=== PATIENT | male | born 1945 | race Caucasian/White ===

== ENCOUNTER 2017-03-09 10:59 | Day surgery (SDC) | payer MEDICARE ==
[2017-03-09 11:17] VITALS: BMI 21.9
--- NOTE | 2017-03-09 11:50 | PDOC ---
History of Present Illness - General History Source: Patient Exam Limitations: No Limitations - History of Present Illness Initial Comments: 03/09/17 11:52 71 y/o M with a PMHx of pacemaker s/p thyroidectomy (12 years ago) presents to the ED sent in by mat tester for a change in pacemaker. Patient noticed the area of the pacemaker twitching for the past two months. Statistical Technician told patient the battery may be dying and needs a replacement. He originally had pacemaker placed 12 years ago due to his heart stopping during a thyroidectomy. Patient has no symptoms. Patient is scheduled in the OR for a pacemaker battery replacement today. He denies fever, chills, diaphoresis. Denies chest pain, SOB , palpitations. Denies nausea, vomiting, diarrhea. Statistical Technician: Dr. Moi Zaidi Environmental Services Specialist: Dr. Fabián Koenig <Flor Garsia - Last Filed: 03/09/17 12:24> <Dominga Perry - Last Filed: 03/09/17 13:28> - General Chief Complaint: Irregular Heart Beat Stated Complaint: PACEMAKER MALFUNCTION Past History <Flor Garsia - Last Filed: 03/09/17 12:24> - Past Medical History Anemia: No Asthma: Yes Cancer: No Cardiac Disorders: Yes (CAD) CVA: No COPD: Yes (BRONCHITIS) CHF: No Dementia: No Diabetes: No GI Disorders: Yes Disorders: No HTN: Yes Hypercholesterolemia: Yes Liver Disease: No Seizures: No Thyroid Disease: No - Surgical History Abdominal Surgery: No Appendectomy: No Cardiac Surgery: Yes (TRIPLE BYPASS, pace maker) Cholecystectomy: No Lung Surgery: No Neurologic Surgery: No Orthopedic Surgery: No - Immunization History Immunization Up to Date: No - Suicide/Smoking/Psychosocial Hx Smoking History: Never smoked Have you smoked in the past 12 months: No Information on smoking cessation initiated: No Hx Alcohol Use: No Drug/Substance Use Hx: No Substance Use Type: None <Dominga Perry - Last Filed: 03/09/17 13:28> - Past Medical History Allergies/Adverse Reactions: Allergies Allergy/AdvReac Type Severity Reaction Status Date / Time No Known Allergies Allergy Verified 03/09/17 11:11 Home Medications: Ambulatory Orders Carvedilol Phosphate [Coreg Cr] 12.5 mg PO DAILY 04/16/14 Levothyroxine [Synthroid -] 112 mcg PO DAILY 04/16/14 Telmisartan [Micardis] 20 mg PO DAILY 04/16/14 Cholecalciferol (Vitamin D3) [Vitamin D3 -] 400 unit PO DAILY 03/09/17 Review of Systems - Review of Systems Able to Perform ROS?: Yes Comments:: 03/09/17 11:52 GENERAL/CONSTITUTIONAL: No fever or chills. No weakness. HEAD, EYES, EARS, NOSE AND THROAT: No change in vision. No ear pain or discharge. No sore throat. CARDIOVASCULAR: (+) twitching at site of pacemaker. No chest pain or shortness of breath. RESPIRATORY: No cough, wheezing, or hemoptysis. GASTROINTESTINAL: No nausea, vomiting, diarrhea or constipation. GENITOURINARY: No dysuria, frequency, or change in urination. MUSCULOSKELETAL: No joint or muscle swelling or pain. No neck or back pain. SKIN: No rash NEUROLOGIC: No headache, vertigo, loss of consciousness, or change in strength/ sensation. ENDOCRINE: No increased thirst. No abnormal weight change. HEMATOLOGIC/LYMPHATIC: No anemia, easy bleeding, or history of blood clots. ALLERGIC/IMMUNOLOGIC: No hives or skin allergy. <Flor Garsia - Last Filed: 03/09/17 12:24> *Physical Exam - Vital Signs Last Vital Signs Temp Pulse Resp BP Pulse Ox 98.0 F 76 18 114/58 98 03/09/17 11:13 03/09/17 11:13 03/09/17 11:13 03/09/17 11:13 03/09/17 11:13 - Physical Exam Comments: 03/09/17 11:52 GENERAL: Awake, alert, and fully oriented, in no acute distress HEAD: No signs of trauma EYES: PERRLA, EOMI, sclera anicteric, conjunctiva clear ENT: Auricles normal inspection, hearing grossly normal, nares patent, oropharynx clear without exudates. Moist mucosa NECK: Normal ROM, supple, no lymphadenopathy, JVD, or masses LUNGS: Breath sounds equal, clear to auscultation bilaterally. No wheezes, and no crackles HEART: Regular rate and rhythm, normal S1 and S2, no murmurs, rubs or gallops ABDOMEN: Soft, nontender, normoactive bowel sounds. No guarding, no rebound. No masses EXTREMITIES: Normal range of motion, no edema. No clubbing or cyanosis. No cords, erythema, or tenderness NEUROLOGICAL: Cranial nerves II through XII grossly intact. Normal speech, normal gait SKIN: Warm, Dry, normal turgor, no rashes or lesions noted. <Flor Garsia - Last Filed: 03/09/17 12:24> - Vital Signs Last Vital Signs Temp Pulse Resp BP Pulse Ox 98.0 F 76 18 114/58 98 03/09/17 11:13 03/09/17 11:13 03/09/17 11:13 03/09/17 11:13 03/09/17 11:13 <Dominga Perry - Last Filed: 03/09/17 13:28> ED Treatment Course - LABORATORY CBC & Chemistry Diagram: 03/09/17 13:00 03/09/17 13:00 <Dominga Perry - Last Filed: 03/09/17 13:28> Medical Decision Making - Medical Decision Making 03/09/17 12:[address] Zaidi. [phone] 03/09/17 12:[address] Koenig. [phone] 03/09/17 12:24 Paged OR and confirmed patient is scheduled for surgery at 4 pm. <Flor Garsia - Last Filed: 03/09/17 12:24> - Medical Decision Making 03/09/17 13:26 Pt presents to the ED after sent in by primary mat tester for admission for change of pacemaker battery. patient is asymptomatic. Case discussed with Dr. Koenig, who will be taking the patient to the OR at 4 pm. <Dominga Perry - Last Filed: 03/09/17 13:28> *DC/Admit/Observation/Transfer - Attestations Scribe Attestion: 03/09/17 11:52 Documentation prepared by Flor Garsia, acting as medical geneticist for Dominga Perry MD. <Flor Garsia - Last Filed: 03/09/17 12:24> - Discharge Dispostion Admit: Yes <Dominga Perry - Last Filed: 03/09/17 13:28> Diagnosis at time of Disposition: Encounter for servicing of pacemaker at end of battery life - Discharge Dispostion Condition at time of disposition: Good
[2017-03-09 13:17] LABS: BASOPHIL 0.9 % (0-2.0); EOSINOPHIL 1.9 % (0-4.5); MCHC 33.2 g/dl (32.0-35.9); MEAN CELL VOLUME 96.3 fl (80-96); MEAN PLT VOLUME 8.8 fl (7.5-11.1); NEUTROPHILS 68.4 % (42.8-82.8); PLATELET COUNT 133 K/MM3 (134-434); RDW 13.2 % (11.9-15.9); WHITE BLOOD COUNT 5.3 K/mm3 (4.0-10.0)
[2017-03-09 13:22] LABS: INR 0.99 (0.82-1.09); PROTHROMBIN TIME (PATIENT) 11.2 SEC (9.98-11.88)
[2017-03-09 13:44] LABS: ALBUMIN 3.6 g/dl (3.4-5.0); ANION GAP 9 (8-16); CALCIUM 9.4 mg/dL (8.5-10.1); CO2 28 mmol/L (21-32); CREATININE 0.8 mg/dL (0.7-1.3); GLUCOSE,RANDOM 151 mg/dL (74-106); SGPT/ALT 18 U/L (12-78)
[2017-03-09 13:46] LABS: BILIRUBIN,TOTAL 0.8 mg/dL (0.2-1.0); TOT PROT 6.6 g/dl (6.4-8.2)
[2017-03-09 13:48] LABS: ALK PHOS 91 U/L (45-117); TROPONIN I 0.08 ng/ml (0.00-0.05)
[2017-03-09 13:50] LABS: CPK 97 IU/L (39-308); SGOT/AST 20 U/L (15-37)
--- NOTE | 2017-03-09 15:43 | CON.CARD ---
Consult Consult Specialty:: Cardiac EP Referred by:: Dr. Zaidi Reason for Consultation:: Pacemaker battery depletion - History of Present Illness Chief Complaint: Pacemaker at end of life History of Present Illness: Mr. Nunn is a pleasant 71 year old male with a pmh of complete heart block post thyroid surgery several years ago s/p dual chamber [employer] pacemaker, htn, cad s/p 3vcabg, hypothyroidism, dm who presented to the [facility] due to his device being at end of life. The patient denies any chest pain, dyspnea, palpitations, near or true syncope. - History Source History Provided By: Patient Limitations to Obtaining History: No Limitations - Past Medical History Cardio/Vascular: Yes: CAD Pulmonary: Yes: Asthma Endocrine: Yes: Diabetes Mellitus - Past Surgical History Past Surgical History: Yes: CABG Additional Surgical History: thyroid surgery 12 years ago - Alcohol/Substance Use Hx Alcohol Use: No - Smoking History Smoking history: Never smoked Have you smoked in the past 12 months: No Home Medications - Allergies Allergies/Adverse Reactions: Allergies Allergy/AdvReac Type Severity Reaction Status Date / Time No Known Allergies Allergy Verified 03/09/17 11:11 - Home Medications Home Medications: Ambulatory Orders Carvedilol Phosphate [Coreg Cr] 12.5 mg PO DAILY 04/16/14 Levothyroxine [Synthroid -] 112 mcg PO DAILY 04/16/14 Telmisartan [Micardis] 20 mg PO DAILY 04/16/14 Cholecalciferol (Vitamin D3) [Vitamin D3 -] 400 unit PO DAILY 03/09/17 Family Disease History - Family Disease History Family History: Unremarkable Review of Systems - Review of Systems Constitutional: reports: No Symptoms HENT: denies: Difficult Swallowing, Epistaxis Neck: denies: Decreased ROM, Pain on Movement Cardiovascular: denies: Chest Pain, Edema, Palpitations, Shortness of Breath Respiratory: denies: Cough, Hemoptysis, Orthopnea, SOB on Exertion Gastrointestinal: denies: Abdominal Pain, Nausea, Vomiting Genitourinary: denies: Dysuria Integumentary: denies: Rash Neurological: denies: No Symptoms Psychiatric: denies: No Symptoms - Risk Factors Known Risk Factors: Yes: Diabetes Mellitus, Hypertension Vital Signs: Vital Signs Temperature 98.0 F 03/09/17 11:13 Pulse Rate 76 03/09/17 11:13 Respiratory Rate 18 03/09/17 11:13 Blood Pressure 114/58 03/09/17 11:13 O2 Sat by Pulse Oximetry (%) 98 03/09/17 11:13 Constitutional: Yes: Well Nourished Eyes: No: Sclera Icterus HENT: No: Epistaxis Respiratory: Yes: WNL, Regular, CTA Bilaterally Gastrointestinal: Yes: Normal Bowel Sounds, Soft Cardiovascular: Yes: Regular Rate and Rhythm JVD: No PMI: Non-Displaced Heart Sounds: Yes: S1, S2 Extremities: Yes: WNL Edema: No Peripheral Pulses WNL: Yes Neurological: Yes: Alert, Oriented ...Motor Strength: WNL Psychiatric: Yes: WNL - Other Data Labs, Other Data: CBC, BMP 03/09/17 13:00 03/09/17 13:00 INR, PTT INR 0.99 (0.82-1.09) 03/09/17 13:00 Troponin, BNP 03/09/17 13:00 Troponin I 0.08 H Troponin, BNP 03/09/17 13:00 Troponin I 0.08 H NSR with 1-1 AV conduction Ejection Fraction %: LVEF > or = 40 % Imaging - Results Chest X-ray: Image Reviewed EKG: Image Reviewed Problem List - Problems (1) Pacemaker at end of battery life Code(s): Z45.010 - ENCNTR FOR CHECKING AND TEST OF CARD PACEMAKER PULSE GNRTR Assessment/Plan 03/09/17: JVD EPS: ppm needing battery replacement due to being at end of life. trop 0.08 without chest pain, not significant. repeat pending. normal LVEF on recent echo. extensive conversation with the patient regarding pulse generator replacement. all questions answered. pt agreeable to proceed. consent obtained and placed in chart. risks/benefits/alternatives were discussed at length. d/w Dr. Zaidi. - for ppm battery replacement today - keep npo - no heparin/lovenox - ancef 1 grams ivss x 1 on-call to OR Fabián Koenig MD [phone]
[2017-03-09] MEDS ORDERED: MIDAZOLAM HCL 2 MG/2 ML SINGLE DOSE VIAL ONE ×2 (16:10→16:47)
[2017-03-09 16:26] LABS: TROPONIN I 0.07 ng/ml (0.00-0.05)
[2017-03-09] MEDS ORDERED: ceFAZolin SODIUM 1 GM VIAL IVPB ONE (16:29)
[2017-03-09] MEDS ORDERED: BUPIVACAINE HCL/PF 0.5% (5MG/ML) 10 ML VIAL ONE (16:36)
[2017-03-09] MEDS ORDERED: LIDOCAINE HCL 1%, 10 MG/ML (20ML VIAL) ONE (16:36)
[2017-03-09] MEDS ORDERED: ceFAZolin SODIUM 1 GM VIAL ONE (16:39)
[2017-03-09] MEDS ORDERED: BUPIVACAINE HCL/PF 0.5% (5MG/ML) 10 ML VIAL IJ ONE (16:47)
[2017-03-09] MEDS ORDERED: LIDOCAINE HCL 1%, 10 MG/ML (50 mL VIAL) IJ ONE (16:47)
--- NOTE | 2017-03-09 17:10 | EKG ---
Test Reason : Blood Pressure : / mmHG Vent. Rate : 068 BPM Atrial Rate : 068 BPM P-R Int : 184 ms QRS Dur : 100 ms QT Int : 372 ms P-R-T Axes : 061 028 078 degrees QTc Int : 395 ms NORMAL SINUS RHYTHM NONSPECIFIC T WAVE ABNORMALITY ABNORMAL ECG WHEN COMPARED WITH ECG OF 26-MAR-2010 23:29, ST MORE DEPRESSED ANTERIOR LEADS Confirmed by DIO SANDOVAL MD ([id number]) on 03/09/2017 5:10:35 PM Referred By: Confirmed By:DIO SANDOVAL MD
[2017-03-09] MEDS ORDERED: ONDANSETRON 4 MG/2 ML VIAL IVPUSH PRN (17:17)
[2017-03-09] MEDS ORDERED: LACTATED RINGERS SOLUTION 1,000 ML IV SCH (17:30)
--- NOTE | 2017-03-09 17:40 | OPR ---
s/p [employer] dual chamber pacemaker pulse generator replacement Dx: Pacemaker battery depletion Anesthesiologist Dr: Vibha De La Cruz Minimal blood loss Old pacemaker pulse generator replacement removed
[2017-03-09 18:37] VITALS: TEMP 97.8
[2017-03-09 19:43] VITALS: BP 120/66; PULSE 62
--- NOTE | 2017-03-10 06:25 | OP ---
DATE OF OPERATION: 03/09/2017 PROCEDURE: Dual-chamber pacemaker pulse generator replacement. SURGEON: Aleksandra Koenig MD INDUSTRIAL AUTOMATION SPECIALIST: Carolee De La Cruz CRNA COMPLICATIONS: None. ESTIMATED BLOOD LOSS: Minimal. This is a 71-year-old male with a past medical history of complete heart block, status post [employer] dual-chamber pacemaker, 2004, now at end of life, here for urgent pulse generator replacement. Informed consent was obtained and adequate time for questions and answers was offered to the patient prior to the procedure. PROCEDURE: Preoperative antibiotics were administered. The procedure was performed during continuous ECG monitoring and with both conscious sedation and local anesthesia administered. Oxygen saturation and exhaled CO2 content were monitored continuously. The left infraclavicular region was prepped and broadly draped. Following administration of local anesthesia, an incision was made at the prior incision site in the left chest area. Using a combination of blunt and sharp dissection with close attention to hemostasis, the old device generator was successfully explanted. Hemostasis was secured. The leads were checked and parameters were stable. All sponges were removed and the wound was irrigated with antibiotic solution. The pulse generator was then connected to the proximal portion of the pacemaker lead and after confirming the adequacy of the electrode connection the device was placed in the pocket. The incision was then closed in layers using absorbable sutures. Dermabond was applied. A sterile bandage was applied. Proper device function was confirmed and the patient was transferred to the postprocedure monitoring area for additional observation. Final device settings were as follows: [employer] Accolade DRIS-1, L301 dual-chamber pacemaker, serial number [id number], implanted March 09, 2017. DDD 60 to 120 beats per minute. The atrial lead was a [employer] FINELINE II EZ Sterox bipolar IS-1 positive fix steroid RA/RV 1480, serial number [id number], implanted February 24, 2005. Bipolar polarity. P waves 3.7 mV. Sensitivity 0.75 mV. Atrial impedance 548 ohms. Atrial threshold 0.6 V at 0.5 msec. Amplitude 2.5 V at 0.5 msec. The ventricular lead was a [employer] FLEXTEND IS-1 bipositive fix RA/RV 59-cm 4088, serial number [id number], implanted February 24, 2005. Bipolar polarity. R waves 14.7 mV. Sensitivity 2.5 mV. Ventricular impedance 521 ohms. Ventricular threshold 0.9 V at 0.5 msec. Amplitude 2.5 V at 0.5 msec. ALEKSANDRA KOENIG M.D. [id number] cc: Moi Zaidi MD
--- NOTE | 2017-03-13 18:04 | PATH ---
Surgical Pathology Report Patient Name: LESLIE STRONG Med. Rec. #: [id number] /Age/Gender: 1945 (Age: 71) / M Account: [id number] Location: AMBULATORY SURG Taken: 03/09/2017 Received: 03/10/2017 Reported: 03/13/2017 Physicians: Fabián Koenig M.D. Specimen(s) Received OLD BATTERY Clinical History Encounter of pacemaker end battery of life Final Diagnosis PACEMAKER, "OLD BATTERY", REMOVAL: CONCAVER CONSISTENT WITH PACEMAKER, MACROSCOPIC DIAGNOSIS. Electronically Signed Jossie Cheema M.D. Gross Description Received dry labeled "old battery" is a 4.3 x 4.0 x 0.8 cm metallic and plastic medical lab tech instructor designated [employer] Insignia Ultra type DDDR [id number]. This is for gross identification only. JOVANNI/03/10/2017 [facility]/03/10/2017
== END 2017-03-09 19:48 | disposition home or self-care (01) ==
LOC: JER 10:59 → JASUSAT 13:28
PROVIDERS: ATTEND Internal Medicine
PROC: 0JH606Z Insertion of Pacemaker, Dual Chamber into Chest Subcutaneous Tissue and Fascia, Open Approach (ICD-10-PCS; 2017-03-09)
PROC: 0JPT0PZ Removal of Cardiac Rhythm Related Device from Trunk Subcutaneous Tissue and Fascia, Open Approach (ICD-10-PCS; principal; 2017-03-09 16:00)
DX: Z45.010 Encounter for checking and testing of cardiac pacemaker pulse generator [battery] (principal); I44.2 Atrioventricular block, complete
CPT/HCPCS: 33228; C1785; 36415; 71020-TC; 80053; 82550; 84484; 85025; 85610; 85730; 88300-TC; 93005; 93010; 94760; 99285-25